=== PATIENT | female | born 1970 | race Caucasian/White ===

== ENCOUNTER 2019-11-25 10:10 | Emergency (ER) | payer OTHER, SELFPAY ==
[2019-11-25 10:20] VITALS: BP 127/92; PULSE 76; RESP 20; TEMP 36.5; O2SAT 100
--- NOTE | 2019-11-25 10:34 | ED.SKABFB ---
HPI - Skin/Abscess/Foreign Bdy General Chief complaint: Skin/Abscess/Foreign Body Stated complaint: pos shingles Time Seen by Provider: 11/25/19 10:35 Source: patient and RN notes reviewed Mode of arrival: ambulatory Limitations: no limitations History of Present Illness HPI narrative: 49 year mold female presents with concern for painful, itchy rash on her left chest, side and back. Reports symptoms started with middle upper abdominal pain on Thursday, she then noticed an itchy painful bump in the same area on Thursday. She reports the rash continued to spread throughout the week. She reports she has been taking Tylenol, Ibuprofen, and Benadryl with little relief. She reports some general malaise. Denies fever. MD complaint: rash Related Data Allergies Allergy/AdvReac Type Severity Reaction Status Date / Time No Known Allergies Allergy Verified 11/25/19 10:27 Review of Systems Review of Systems: Narrative: CONSTITUTIONAL: Denies malaise, chills, sweats, or fever. CARDIOVASCULAR: Denies chest pain, palpitations, or edema. RESPIRATORY: Denies cough or dyspnea. GASTROINTESTINAL: Denies abdominal pain, nausea, vomiting, diarrhea GENITOURINARY: Denies dysuria or hematuria. SKIN: Reports burning, painful, itchy rash on her left upper torso MUSCULOSKELETAL: Denies musculoskeletal pain, mylagia NEUROLOGIC: Denies numbness, weakness All systems reviewed & are unremarkable except as noted in HPI and below PMFSH Family History Family History (Updated 05/27/18 @ 10:32 by DOCTOR UNKNOWN) Mother Family history of thyroid disease Family history of liver disease Father Hypertension Social History Social History Smoking status: Heavy tobacco smoker Comments At time of signature, agree with nursing past medical, surgical, social and family history. There is no relevant family history pertinent to the presenting complaint Exam Narrative: Exam Narrative: GENERAL: Well-appearing, well-nourished, and in no acute distress. HEAD: Normocephalic, atraumatic. EYES: PERRLA, conjunctivae clear ENT: Mucous membranes moist. NECK: Supple. CHEST: No respiratory distress. Clear to auscultation. No bony deformities, no asymmetry. Speaks in full sentences. HEART: Regular rate and rhythm. No murmur heard. Normal peripheral pulses. SKIN: Warm, dry. Zosteriform rash noted to left upper torso NEURO: Alert and oriented x3. PSYCH: Normal mood and affect Course Course Emergency Course: Patient is aware of diagnosis, understands and agrees to treatment plan. Anticipatory guidance given. Patient agrees to follow-up as directed and is aware of reasons to seek care at the emergency department. Portions of this record may have been created with voice recognition software Vital Signs Vital signs: Vital Signs Temperature 97.7 F 11/25/19 10:20 Pulse Rate 76 11/25/19 10:20 Respiratory Rate 20 11/25/19 10:20 Blood Pressure 127/92 H 11/25/19 10:20 Pulse Oximetry 100 11/25/19 10:20 Temperature 97.7 F 11/25/19 10:20 Pulse Rate 76 11/25/19 10:20 Respiratory Rate 20 11/25/19 10:20 Blood Pressure 127/92 H 11/25/19 10:20 Pulse Oximetry 100 11/25/19 10:20 Reviewed. Patient has been instructed to follow up with her primary care provider within the next week regarding her elevated blood pressure today. MDM - Skin/Abscess/Foreign Bdy MDM Narrative Medical decision making narrative: Does not appear at this time to be erythema multiforme, bullous, SJS, TEN; no evidence at this time to suggest RMSF, endocarditis or Lyme disease; patient looks well, nontoxic and is tolerating oral intake; no neurologic signs or symptoms; no headache, photophobia or neck pain; afebrile; appropriate for initial outpatient treatment; discussed the importance of follow-up, patient agrees; question, viral exanthema, contact dermatitis, allergic dermatitis, eczema, urticaria, shingles. No soft palate or uvula edema, no tongue, lip edema or other mucosal
== END 2019-11-25 11:05 | disposition home or self-care (01) ==
PROVIDERS: Emergency Provider Nurse Practitioner; PCP Internal Medicine
DX: B02.9 Zoster without complications (principal); F17.200 Nicotine dependence, unspecified, uncomplicated
CPT/HCPCS: 99213; G0463

== ENCOUNTER 2020-08-18 17:06 | Emergency (ER) | payer OTHER, SELFPAY ==
[2020-08-18 17:14] VITALS: BP 136/90; PULSE 80; RESP 18; TEMP 37.1; O2SAT 100
--- NOTE | 2020-08-18 17:16 | ED.URI ---
HPI - URI/Sore Throat General Chief Complaint: Upper Respiratory Infection Stated Complaint: Sore Throat Time Seen by Provider: 08/18/20 17:21 Source: patient and RN notes reviewed Mode of arrival: ambulatory Limitations: no limitations History of Present Illness HPI Narrative: 49-year-old female presents with concern for intermittent hoarse voice, sore throat for 3 weeks. Reports sometimes the sore throat is worse in the morning and improves throughout the day. She reports hoarse voice is intermittent. She denies fever, body aches, chills, sweats, rhinorrhea, nasal congestion, ear pain, headache, nausea, cough, shortness of breath. Reports she has been using cough syrup and lozenges with little relief. MD elicited complaint: sore throat Related Data Allergies Allergy/AdvReac Type Severity Reaction Status Date / Time No Known Allergies Allergy Verified 08/18/20 17:08 Review of Systems Review of Systems: Narrative: CONSTITUTIONAL: Denies malaise, chills, sweats, or fever. EYES: Denies visual changes, redness, or discharge. ENT: Denies rhinorrhea, congestion, sinus pain, otalgia. Reports intermittent sore throat and hoarse voice CARDIOVASCULAR: Denies chest pain, palpitations, or edema. RESPIRATORY: Denies cough or dyspnea. GASTROINTESTINAL: Denies abdominal pain, nausea, vomiting, diarrhea SKIN: Denies rash or itching. MUSCULOSKELETAL: Denies myalgia. NEUROLOGIC: Denies headache. All systems reviewed & are unremarkable except as noted in HPI and below PMFSH Family History Family History (Updated 05/27/18 @ 10:32 by DOCTOR UNKNOWN) Mother Family history of thyroid disease Family history of liver disease Father Hypertension Social History Social History Smoking status: Heavy tobacco smoker Gender identity (if verbalized by the patient): Female Comments At time of signature, agree with nursing past medical, surgical, social and family history. There is no relevant family history pertinent to the presenting complaint Exam Narrative: Exam Narrative: GENERAL: Well-appearing, well-nourished, and in no acute distress. HEAD: Normocephalic EYES: PERRLA, conjunctivae clear ENT: Nares clear, turbinates erythematous, clear discharge. Mucous membranes moist. TM pearly bang with sharp light reflex bilaterally; no tragal tenderness. Oropharynx not erythematous without lesions. Tonsils not enlarged and without exudate, no drooling, no hoarseness, no trismus, uvula midline. NECK: Supple. No lymphadenopathy CHEST: Clear to auscultation, breath sounds equal. No wheezing, rhonchi, rales, or stridor. No respiratory distress, speaks in full sentences. HEART: Regular rate and rhythm. No murmur heard. SKIN: Warm, dry, no rash. NEURO: Alert and oriented x3. PSYCH: Normal mood and affect Course Course Emergency Course: Patient is aware of diagnosis, understands and agrees to treatment plan. Anticipatory guidance given. Patient agrees to follow-up as directed and is aware of reasons to seek care at the emergency department. Portions of this record may have been created with voice recognition software Vital Signs Vital signs: Vital Signs Temperature 98.7 F 08/18/20 17:14 Pulse Rate 80 08/18/20 17:14 Respiratory Rate 18 08/18/20 17:14 Blood Pressure 136/90 08/18/20 17:14 Pulse Oximetry 100 08/18/20 17:14 Temperature 98.7 F 08/18/20 17:14 Pulse Rate 80 08/18/20 17:14 Respiratory Rate 18 08/18/20 17:14 Blood Pressure 136/90 08/18/20 17:14 Pulse Oximetry 100 08/18/20 17:14 Reviewed. MDM - URI/Sore Throat MDM Narrative Medical decision making narrative: Differential diagnosis considered: [place] virus, strep pharyngitis, allergic rhinitis, upper respiratory tract infection, sinusitis, rhinosinusitis, nasopharyngitis. viral pharyngitis, otitis media, otitis externa, pneumonia, bronchitis, viral cough syndrome, viral syndrome, and influenza. Exam findings show no acute concerns or changes; shane
== END 2020-08-18 17:47 | disposition home or self-care (01) ==
PROVIDERS: Emergency Provider Nurse Practitioner
DX: J02.9 Acute pharyngitis, unspecified (principal); Z20.822 Contact with and (suspected) exposure to COVID-19
CPT/HCPCS: 87081; 87880; 99213; G0463

== ENCOUNTER 2021-08-23 17:55 | Emergency (ER) | payer OTHER, SELFPAY ==
[2021-08-23 18:02] VITALS: BP 126/86; PULSE 81; RESP 12; TEMP 36.3; O2SAT 99
--- NOTE | 2021-08-23 18:35 | ED.EAR ---
HPI - Ear Problem General Chief complaint: Ear Stated complaint: Lt Ear Irritation Time Seen by Provider: 08/23/21 18:30 Source: patient, RN notes reviewed and old records reviewed Mode of arrival: ambulatory Limitations: no limitations History of Present Illness HPI Narrative: 50-year-old female who presents to [facility] with complaints of acute left ear pain for the past 2-3 days also states cough with congestion for past 4 days. Patient reports that she has perfomed home COVID tests on Thursday and also which have been negative. Patient states that she also has headache, body aches, and has some chills and sweats but does not know of fevers. MD Complaint: ear pain Location: left ear Discharge from ear: Reports no Treatment prior to arrival: other (tylenol and cough syrup) Related Data Allergies Allergy/AdvReac Type Severity Reaction Status Date / Time No Known Allergies Allergy Verified 08/23/21 18:10 Review of Systems Review of Systems: CONSTITUTIONAL: Denies fever, positive for chills, or sweats. EYES: Denies visual changes, redness, or discharge. ENT: Denies rhinorrhea, congestion,no sore throat, positive for left otalgia. CARDIOVASCULAR: Denies chest pain, palpitations, or edema. RESPIRATORY: Positive for cough denies dyspnea. GASTROINTESTINAL: Denies abdominal pain, nausea, vomiting, or diarrhea. GENITOURINARY: Denies dysuria or hematuria. SKIN: Denies rash or itching. MUSCULOSKELETAL: Denies back pain, joint pain,positive for body aches NEUROLOGIC: Denies headache, numbness, or weakness. PSYCHIATRIC: Denies anxiety or depression. All systems reviewed & are unremarkable except as noted in HPI and below PMFSH Past Medical History Medical History (Updated 08/25/21 @ 01:42 by Mabel Bronson NP) Shingles Strep throat as child Surgical History Surgical History (Updated 08/25/21 @ 01:39 by Mabel Bronson NP) History of bunionectomy of left great toe Family History Family History (Updated 05/27/18 @ 10:32 by DOCTOR UNKNOWN) Mother Family history of thyroid disease Family history of liver disease Father Hypertension Social History Social History (Updated 08/25/21 @ 01:42 by Mabel Bronson NP) Smoking status: Current every day smoker Tobacco type: cigarettes Alcohol intake: current Alcohol use details: social Substance use type: does not use Living arrangements: with family Gender identity (if verbalized by the patient): Female Comments At time of signature, agree with nursing past medical, surgical, social and family history. There is no relevant family history pertinent to the presenting complaint Exam Narrative: GENERAL: Well-appearing, well-nourished, and in no acute distress. HEAD: Normocephalic, atraumatic. EYES: PERRLA and EOMI. ENT: Nares with minimal redness clear rhinorrhea no epistaxis. Mucous membranes moist.TM's normal with good light reflex, left ear canal red and excoriated with some blood noted, right ear canal normal, throat red with no lesions or exudates or tonsil swelling post nasal drainage present NECK: Supple. CHEST: Clear to auscultation. No respiratory distress. cough noted, SAO2 99% on room air HEART: Regular rate and rhythm. No murmur heard. Normal peripheral pulses. ABDOMEN: Soft, nontender, nondistended, normal active bowel sounds. EXTREMITIES: Normal range of motion. No edema. SKIN: Warm, dry, no rash. NEURO: No focal deficits. Alert and oriented x3. Course Course Level of Care: Express Care Visit Vital Signs Vital signs: Vital Signs Temperature 36.3 C L 08/23/21 18:02 Pulse Rate 81 08/23/21 18:02 Respiratory Rate 12 08/23/21 18:02 Blood Pressure 126/86 08/23/21 18:02 Pulse Oximetry 99 08/23/21 18:02 Oxygen Delivery Room Air 08/23/21 18:02 Temperature 36.3 C L 08/23/21 18:02 Pulse Rate 81 08/23/21 18:02 Respiratory Rate 12 08/23/21 18:02 Blood Pressure 126/86 08/23/21 18:02 Pulse
== END 2021-08-23 18:45 | disposition home or self-care (01) ==
PROVIDERS: Emergency Provider Registered Nurse
DX: H60.92 Unspecified otitis externa, left ear (principal); J06.9 Acute upper respiratory infection, unspecified; F17.210 Nicotine dependence, cigarettes, uncomplicated
CPT/HCPCS: 87804; 99213; G0463